=== PATIENT | female | born 1960 | race Caucasian/White ===

== ENCOUNTER → 2022-09-26 10:28 | Outpatient (BNVA) | payer MEDICAID, SELFPAY | PROVIDERS: Family Provider Internal Medicine; PCP Family Medicine; Visit Provider Specialist | DX: M87.051 Idiopathic aseptic necrosis of right femur (principal); M17.11 Unilateral primary osteoarthritis, right knee | CPT/HCPCS: 73560; 73565 ==

== ENCOUNTER 2022-10-07 09:21 | Outpatient (CLI) | payer BC, MEDICAID, SELFPAY | END 2022-10-07 09:22 | disposition home or self-care (01) | PROVIDERS: PCP Emergency Medicine; Visit Provider Specialist | DX: Z13.6 Encounter for screening for cardiovascular disorders (principal) | CPT/HCPCS: 93005 ==

== ENCOUNTER 2022-10-18 16:44 | Inpatient (IN) | payer BC, MEDICAID, SELFPAY ==
--- NOTE | 2022-10-07 13:12 | ECG_ITS ---
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 Measurements Intervals [place] Rate: 74 P: 77 CO: 129 QRS: 62 QRSD: 92 T: 77 QT: 303 QTc: 336 Interpretive Statements SINUS RHYTHM NONSPECIFIC T-WAVE ABNORMALITY Compared to ECG 02/21/2018 08:25:09 No significant changes Electronically Signed On 10-10-2022 18:34:40 GRINDER SET UP OPERATOR by Kris Vega M.D. [id number]
[2022-10-07 13:13] LABS: Basophils # 0.1 10^3/uL (0.0-0.1); Basophils % 0.5 %; Eosinophils # 0.2 10^3/uL (0.0-0.8); Eosinophils % 1.5 %; Hematocrit 41.6 % (37.0-47.0); Hemoglobin 12.4 g/dL (11.5-15.3); Lymphocytes # 1.3 10^3/uL (0.8-4.8); Lymphocytes % 10.5 %; Mean Corpuscular HGB Conc 29.8 g/dL (30.0-36.0); Mean Corpuscular Hemoglobin 28.1 pg (28.0-34.0); Mean Corpuscular Volume 94.1 fl (81-99); Mean Platelet Volume 9.7 fL (7.4-10.4); Monocytes # 0.7 10^3/uL (0.2-0.9); Monocytes % 5.7 %; Neutrophils # 10.15 10^3/uL (1.8-7.7); Neutrophils % 80.8 %; Nucleated Red Blood Cells % 0 %; Platelet Count 330 10^3/cmm (130-400); Red Blood Count 4.42 10^6/uL (4.1-5.3); Red Cell Distribution Width 14.3 % (12.1-15.1); White Blood Count 12.6 10^3/uL (4.0-10.0)
--- NOTE | 2022-10-07 13:20 | ANES.PREANE2 ---
Pre-Anesthetic Assessment Height/Weight: Height 1.7 m Weight 45.359 kg Preop Diagnosis: Osteoarthritis right knee with avascular necrosis Operation Date: 10/18/22 07:00 Proposed Procedures p RIGHT TOTAL KNEE ARTHROPLASTY WITH REVISION COMPONENTS 44347,M87.059,M17.11(Right) - Halie Menchaca MD Familial anesthetic complications: None Social Tobacco and No alcohol Exam alert, oriented x 3, clear to auscultation bilaterally and regular rate & rhythm Airway Mallampati: Class I Dentition: false Pulmonary Chronic Obstructive Pulmonary Disease (chronic broncitis) CV/HEM Peripheral Vascular Disease (Blue toe syndrome) Vtach s/p ablation (? RV outflow tract origin as etiology per EKG changes) - S/p ablation with no further issues Mild AI Cardiomyopathy 2018 echo (during her Vtach episodes) - EF 60%, mild MVR, MoD AVR and Mild Pulm HTN LBBB Cath from [facility] showed patient to have RCA dominant circulatoin and mild Diffuse CAD Chronic Renal Insufficiency (stage III) GI Gastroesophageal Reflux Disease Metabolic Thyroid Disease Musc/skel Scoliosis CREST syndrome w/ mild pulm HTN and raynaud's syndrome (toe amputation) Neuropsych None reported Anesthetic Plan ASA status: 4 Anesthesia: Regional (specify below) Other: Spinal + adductor Risk of > 500 ml blood loss (7ml/kg in children): No Other Pertinent Information Patient states her close family have been diagnosed with Strep. Today she states she isn't feeling well and sounds Cruddy. Her WBC is slightly elevated today. INstructed patient to see PCP before surgery, since the surgery will involve implants. Medications/Allergies Home Medications Medication Instructions Recorded Confirmed Last Taken Type albuterol sulfate 90 mcg/actuation 2 puff inhalation Q6H PRN 09/26/22 10/07/22 Unknown History aerosol inhaler Shortness Of Breath bupropion HCl 150 mg 24 hr tablet, 150 mg PO QAM 09/26/22 10/07/22 10/07/22 History extended release buspirone 5 mg tablet 5 mg PO TID 09/26/22 10/07/22 10/07/22 History cholecalciferol (vitamin D3) 125 125 mcg PO DAILY 09/26/22 10/07/22 10/07/22 History mcg (5,000 unit) capsule cilostazol 100 mg tablet 100 mg PO BID 11/06/1010/07/22 10/07/22 History citalopram 40 mg tablet 40 mg PO DAILY 09/26/22 10/07/22 10/07/22 History clopidogrel 75 mg tablet 75 mg PO DAILY 09/26/22 10/07/22 10/07/22 History ferrous sulfate 325 mg (65 mg 325 mg PO DAILY 09/26/22 10/07/22 10/07/22 History iron) tablet (Feosol) gabapentin 300 mg capsule 300 mg PO BID 09/26/22 10/07/22 10/06/22 History hydrocodone 10 mg-acetaminophen 1 tab PO Q4H PRN Pain 09/26/22 10/07/22 10/07/22 History 325 mg tablet hydroxychloroquine 200 mg tablet 200 mg PO DAILY 09/26/22 10/07/22 10/07/22 History lactobacillus combination no.9 4 4,000 mmu cells PO DAILY 09/26/22 10/07/22 Unknown History billion cell capsule (Adult 50 Plus Probiotic) levothyroxine 75 mcg tablet 75 mcg PO DAILY 09/26/22 10/07/22 10/07/22 History (Synthroid) midodrine 5 mg tablet 5 mg PO TID 09/26/22 10/07/22 10/07/22 History nitroglycerin 2 % transdermal 1 inch transdermal Q6H 09/26/22 10/07/22 Unknown History ointment (Nitro-Bid) omeprazole 40 mg capsule,delayed 40 mg PO BID 09/26/22 10/07/22 10/07/22 History release prednisone 5 mg tablet 5 mg PO DAILY 09/26/22 10/07/22 10/07/22 History Allergies Allergy/AdvReac Type Severity Reaction Status Date / Time No Known Allergies Allergy Unverified 09/26/22 10:46 [facility] Anesthesia Medical History (Updated 09/27/22 @ 11:26 by Halie Menchaca MD) Amputation of right great toe Anxiety and depression Aseptic necrosis medial femoral condyle Bilateral leg pain Blue toe syndrome Cardiomyopathy Chronic bronchitis COPD (chronic obstructive pulmonary disease) Coronary artery disease CREST syndrome Generalized arteriosclerosis Hypertension Hypothyroidism Mild aortic insufficiency Osteoporosis Raynauds syndrome Restless leg syndrome Stage 3b chronic kidney disease (CKD) Ventricular tachycardia Vitamin D deficiency Surgical History (Updated 09/27/22 @ 11:26 by Halie Menchaca MD) History of cardiac radiofrequency ablation (RFA) Social History Smoking and tobacco status: current every day smoker Second hand smoke exposure: Yes Smoking risk assessment/counseling performed?: No Alcohol intake: never Adopted: No Caregiver/support person: No Lives independently: No Household members: family Housing: House Number of children: 3 Number of grandchildren: 7 Highest education level completed: High School Graduate service: No Current occupational status: employed 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
[2022-10-07 13:24] LABS: Add Urine Microscopic? NO; Charge for UA Resulting for Rev
[2022-10-07 13:29] LABS: Alanine Aminotransferase 7 U/L (0-33); Albumin Level 3.9 g/dL (3.5-5.2); Alkaline Phosphatase 95 U/L (35-105); Anion Gap 15.4 (5-19); Aspartate Amino Transferase 11 U/L (0-32); Blood Urea Nitrogen 12 mg/dL (8-23); Calcium 9.6 mg/dL (8.5-10.5); Carbon Dioxide 22 mmol/L (22-29); Chloride 102 mmol/L (98-107); Globulin 2.6 g/dL (1.3-4.6); Glomerular Filtration Rate 41.8 mL/min (90-130); Glucose 74 mg/dL (65-115); Osmolality Calculated 278 mOsm/kg (285-295); Potassium 4.4 mmol/L (3.5-5.1); Sodium 135 mmol/L (136-145); Total Bilirubin 0.2 mg/dL (0.15-1.2); Total Protein 6.5 g/dL (6.6-8.7)
[2022-10-07 13:31] LABS: Bilirubin Urine Neg (Negative); Blood Urine Neg (Negative); Glucose Urine UA Norm (Normal); Ketones Urine Negative (Negative); Leukocyte Esterase Urine Negative (Negative); Nitrate Urine Negative (Negative); Protein Urine Neg (Negative); Specific Gravity, Urine 1.015 (1.005-1.030); Urine Appearance Clear (CLEAR); Urine Color Yellow (Yellow); Urobilinogen Urine Neg (Negative); pH Urine 6 (5-7)
[2022-10-18] VITALS (20 sets, daily range): BP systolic 88–119; BP diastolic 57–72; PULSE 95–104; RESP 12–20; TEMP 36.3–37.1; O2SAT 90–96
[2022-10-18] MEDS: acetaminophen 1,000 MG/100 ML PIGGYBACK 400 MG IV ×2 (10:45→17:30)
--- NOTE | 2022-10-18 11:00 | P.ANESUD_ITS ---
Pre-Anesthetic Update Pre-Anesthetic Assessment: Date of Surgery/Procedure: 10/18/22 Preop Kathie gnosis: Osteoarthritis right knee with avascular necrosis Proposed Procedure: Operation Date: 10/18/22 11:15 Proposed Procedures p RIGHT TOTAL KNEE ARTHROPLASTY WITH REVISION COMPONENTS 89733,M87.059,M17.11(Right) - Halie Menchaca MD Any changes to Pre-Anesthetic Assessment?: No Last Intake: Intake Last Liquid Date 10/17/22 Last Liquid Time 23:45 Last Solid Date 10/17/22 Last Solid Time 23:30 Vitals: Temperature 98.7 F 10/18/22 10:20 Temperature Source Temporal Artery S can 10/18/22 10:20 Pulse Rate 104 H 10/18/22 10:20 Respiratory Rate 18 10/18/22 10:20 Blood Pressure 88/57 10/18/22 10:20 Blood Pressure Yamilet n 67 10/18/22 10:20 Pulse Oximetry 96 10/18/22 10:20 Oxygen Delivery Me thod 10/18/22 10:23 Exam: Pre-Anes Outpt Exam: alert, oriented x 3, clear to auscultation bilate rally and regular rate & rhythm Cardiac Studies: No Data to Display
--- NOTE | 2022-10-18 11:00 | ANES.PROC ---
Anesthesia Procedures Procedure/Date: 10/18/22 Nerve Block ^: Nerve Block 1: Main Anesthesia: spinal anesthesia block Time Out Performed: Yes Consent: requested by attending/covering physician, from patient, risks and benefits reviewed and patient agrees to proceed Nerve block location: adductor canal (R) Anesthesia monitors applied: pulse oximetry, EKG, BP cuff and oxygen Nerve block position: supine Anesthetic Used: ropivicaine 0.5% (30 ml) and with decadron (4 mg) Ultrasound used to: recognize landmarks and visualize and ID femerol nerve Nerve Stimulator Used?: No Interscalene/Femoral BLK: 4 stimuplex 21 g needle used for position and inplane approach, visualize local anesthetic spread and no vascular puncture identified Injection: neg aspiration of heme Patient Tolerated Procedure: well Complications: none
[2022-10-18] MEDS: sodium chloride 0.9% 1,000 ML 30 ML IV (11:02)
--- NOTE | 2022-10-18 11:45 | P.HPUD_ITS ---
Surgery/Procedure H&P Update DATE OF PROCEDURE: October 18, 2022 DATE H&P PERFORMED: 09/26/22 H&P UPDATE INFORMATION: I have reviewed H&P completed within last 30 days, I have examined patient prior to procedure, No changes to prior documentation and H&P is in [facility] EMR on date indicated PREOP DIAGNOSIS: Osteoarthritis right knee with avascular necrosis medial femoral condyle PLANNED PROCEDURE: Operation Date: 10/18/22 11:15 Proposed Procedures p RIGHT TOTAL KNEE ARTHROPLASTY WITH REVISION COMPONENTS 57818,M87.059,M17.11(Right) - Halie Menchaca MD Related Problem List Diagnoses (1) Arthritis of right knee: (2) Aseptic necrosis medial femoral condyle:
[2022-10-18] MEDS: ceFAZolin 2,000 MG in sodium chloride 0.9% (plus) 50 ML 100 MG IV ×2 (12:15→20:29)
[2022-10-18] MEDS: tranexamic acid 1,000 mg/10mL SDV 500 MG IV ×2 (12:50→14:36)
[2022-10-18] MEDS: ceFAZolin 1,000 mg SDV 2000 MG IRRIGATION (13:29)
[2022-10-18] MEDS: vancomycin 1,000 MG SDV 1000 MG XX (13:30)
--- NOTE | 2022-10-18 15:01 | PM.OP ---
Operative Report Date of procedure: October 18, 2022 Pre-op diagnosis: Osteoarthritis right knee with avascular necrosis medial femoral condyle with flexion contracture Post-op diagnosis: Osteoarthritis right knee with avascular necrosis medial femoral condyle with flexion contracture Procedure done: Right total knee arthroplasty Implants: The Gabby cemented total knee system with a size 3 triathlon posterior stabilized femur right, a triathlon universal tibial component size 4, a triathlon X3 posterior stabilized tibial bearing insert size 4 X 11 mm and a triathlon X3 asymmetric patella size 29 x 9 mm Specimens removed/disposition: Avascular bone sent to pathology Surgeon: Halie Menchaca [employer] Launch [employer] Technician[facility] Anesthesia: MAC (MAC with spinal, ASA 4) Estimated blood loss (mL): 25 Tourniquet time (min): 111 (At 250 mmHg) IV fluids (mL): 1,500 Urine output (mL): 400 Complications: None Findings: Complete dissociation of cartilage and avascular bone distally on the medial femoral condyle. Condition: stable Disposition: PACU (Then to floor for postoperative rehabilitation and pain management) Brief History: 62-year-old woman presented to my office with complaints of severe right knee pain. After evaluation of x-rays and MRI, the patient was diagnosed with severe avascular change in the medial femoral condyle of the right femur. After discussion with the patient, we elected to proceed with surgical intervention. Risks and complications were discussed. Plans were made to have full revision components with augments and stems should it be needed. The patient understood this as well. Consents were signed and the patient was scheduled for surgery. Procedure: The patient was brought to the operating theater, and after undergoing adequate spinal anesthesia, ASA 4, the right lower extremity was prepped and draped in usual fashion following placement of a tourniquet high on the leg. The leg was then draped free with the prepping accomplished with DuraPrep. Following prepping and draping, the leg was exsanguinated, and the tourniquet was elevated to 250 mmHg for total tourniquet time of 111 minutes. Prior to elevation of the tourniquet the following exposure of the site of surgery, a surgical pause was performed. At the time of the surgical pause we confirmed the site and side of surgery. Additionally, we confirmed the appropriate and timely administration of preoperative antibiotics, Ancef 2 g. The availability of equipment was confirmed, and the patient's identity was verbalized as well. Following the surgical pause, an incision was made centering over the patella continuing proximally and distally as necessary to allow access to the knee joint. Dissection continued through skin and soft tissues using a scalpel. Hemostasis was obtained using electrocautery. The midline skin incision was followed by a median parapatellar arthrotomy. The leg was extended and the patella was everted. Following this the leg was returned to flexed position. The distal femur was exposed. There was noted to be significant obvious avascular necrosis over the medial femoral condyle of the distal femur. There was cartilage with a layer of bone suspended essentially in space at the distal aspect of the medial femoral condyle. This was easily pulled sideways for evaluation of the underlying bone which was noted to be quite sclerotic. For further evaluation of this bone, dental pick was used to make sure that there were no large cysts that were hidden behind the bone. We elected to proceed with preparation for primary total knee arthroplasty at this time with evaluation of the need for augments to be accomplished as the case proceeded. A drill hole was made in the intercondylar notch for placement of the distal femoral jig. The distal femoral jig was set at 5? of valgus. The distal femoral cutting block was then placed in appropriate position, and an evangelist wing was used to confirm an appropriate amount of distal femur would be resected. Due to the avascular necrotic changes of the distal medial femoral condyle, and a slight flexion contracture, we resected the distal femur at 10 degrees. The distal femoral resection was accomplished. After the distal femoral resection had been accomplished the femur was measured and it measured a size 3. Anterior posterior dimension was a size 3 as well. Once the distal femoral resection was accomplished, we further evaluated the femur, and at this point, made the decision to proceed as though a primary knee implant would be appropriate. A size 3 femoral cutting block was placed in position and we were then able to accomplish the anterior, posterior and chamfer cuts. This jig was then removed and the notch guide was placed in position. With the notch guide in appropriate position the notch was excised including resection of the anterior and posterior cruciate ligaments. This notch was to allow for the posterior stabilized femoral component. After resection of the notch as well as performance of the anterior posterior tear for cuts, it was felt that adequate bone was available to proceed with a primary total knee arthroplasty, cemented, but without revision components. At this point, the femur was prepared and attention was directed to the proximal tibia. The posterior knee retractor was placed along with medial and lateral retractors. Further resection of the menisci were accomplished as we had better visualization. A complete meniscectomy was performed both medially and laterally with care being taken to protect the popliteus. Retractors were then placed so that the proximal tibia was well visualized. A drill hole was then made in the tibia for placement of the intramedullary guide. This guide was placed so that approximately to mm of bone to be resected from the deficient medial tibial plateau. The intramedullary guide was utilized supplemented with an extra medullary guide to assure appropriate alignment for the proximal tibial resection. The proximal tibial jig was then evaluated, pinned in position, and the proximal tibial resection was accomplished without difficulty. The jig was removed and the proximal tibia was measured. It measured a size 4. We then performed a trial reduction with an 11 mm insert into the size 4 tray. The femoral component was placed in position and the knee was placed through range of motion. There was good stability. There was full extension without lift off and the rotation of the tibia was marked. Patella was noted to track nicely. Attention was then directed to the patella. The patella was measured with a caliper. We resected about 7 mm of the patella which left remaining approximately 14 mm. Measurements of the patella then indicated that a size asymmetric 29 mm x 9 mm was the appropriate patellar size. We then placed the jig to drill for the 3 pegs of the patella, and these drill holes were made without incident. A trial patella was then placed and the knee was placed through range of motion. The patella was noted to track nicely without evidence of subluxation. All trial components were subsequently removed. The tibial tray was then pinned into position and we drilled and broached the tibia for the stem of the tibial component. This was accomplished without difficulty. Care was taken to assure appropriate rotation on the tibia as well as appropriate position on the proximal tibia. The tibial tray was completely seated on the proximal tibia. Following broaching, the tibial guide was removed and all surfaces were copiously irrigated in preparation for cementing, this included a pin on power in the sclerotic areas of the medial tibial plateau and patella. The surfaces were then dried and a bone plug was placed into the distal femur. Cementing was accomplished with Gabby cement. This gave us excellent working time. Cement was placed initially under the proximal tibia and the tibia was impacted into position. Similarly the femur was impacted into position after cement was laid onto the distal femur pushing it into the interstitial bone. All components were impacted into position and excess cement was removed from around both components. The tibial tray was placed during the cementing process so that we could place the knee in extended position while the cement was allowed to fully cure. The patella was also cemented at this point in time and held with a patellar clamp. Once again excess cement was cleared from around the patellar component as well. The knee was held in the extended position until cement was allowed to fully cure. During that time we did irrigate the knee with 20 mL of Betadine and 500 mL of normal saline and will allow this to remain in the knee for 3-4 minutes. Once the cement had fully cured, all surfaces were reevaluated for further extruded cement and where this was found it was excised. Once the cement had fully cured and excess cement was cleared, the knee was then copiously irrigated and suctioned dry. Attention was then directed to closure. Closure was accomplished with 0 Vicryl in the fascial tissues, 2-0 Monocryl was used in the subcutaneous tissues, and the skin was closed with skin lenard. A sterile dressing was then placed consisting of Dermabond pernio, OpSite, sterile soft roll, and an Lamine wrap. The patient was returned the Recovery Room in a satisfactory condition. X-rays were obtained there. The patient will be discharged to the floor for postoperative rehabilitation and pain management. There were no specimens and no complications.
--- NOTE | 2022-10-18 15:31 | XRR_ITS ---
PROCEDURE INFORMATION: Exam: XR Right Knee Exam date and time: 10/18/2022 3:33 PM Age: 62 years old Clinical indication: Device placement; Joint replacement hardware; Prior surgery; Surgery date: Post-operative (0-2 days); Surgery type: Right total knee TECHNIQUE: Imaging protocol: Radiologic exam of the Right knee. Views: 3 views. COMPARISON: CR XR knees AP WB w RT lmt ORTH 09/26/2022 10:29 AM FINDINGS: Bones/joints: Knee arthroplasty changes in place with postsurgical soft tissue changes. Soft tissues: See Bones/joints finding. Vasculature: Scattered vascular calcifications. XR/XR knee RT 3V* [id number] IMPRESSION: 1. Knee arthroplasty changes in place with postsurgical soft tissue changes. 2. Scattered vascular calcifications.
--- NOTE | 2022-10-18 16:24 | ANE.PACU2 ---
Inpatient post-anesthesia follow up: Airway intact: Yes Vital signs: Temperature 97.4 F Pulse Rate 97 Respiratory Rate 14 Blood Pressure 113/71 Pulse Oximetry 93 Oxygen Delivery Me thod Room Air Oxygen Flow Rate Fraction of Inspir ed Oxygen Hydration adequate: Yes Nausea and vomiting: No Pain level: 1 Mental status: Baseline
[2022-10-18] MEDS: mupirocin oint 22 gm 1 APPLIC NASAL (17:30)
[2022-10-18] MEDS: calcium carbonate 500 mg Chew Tablet 1000 MG PO (17:30)
[2022-10-18] MEDS: oxyCODONE 5 mg IR Tab/Cap 10 MG PO (17:31)
[2022-10-18] MEDS: pantoprazole DR 40 mg Tablet PO (17:32)
[2022-10-18] MEDS: cilostazol 100 mg Tablet PO (17:34)
[2022-10-18] MEDS: chlorhexidine gluconate 0.12% Btl 473 mL 30 ML MUCOUS MEM ×2 (17:34→20:31)
[2022-10-18] MEDS: iron polysaccharide complex 150 mg Capsule PO (17:34)
[2022-10-18] MEDS: gabapentin 300 mg Capsule PO (17:34)
[2022-10-18] MEDS: sennosides-docusate Tablet 2 TAB PO (17:34)
[2022-10-18] MEDS: CELEcoxib 200 mg Capsule PO (17:34)
--- NOTE | 2022-10-18 18:43 | PC.NURSE ---
Patient arrived to unit via bed from PACU, minimal c/o pain, Right knee dressing clean, dry and intact, AAOx4, VSS, patients pain increased once on the floor. Family at bedside, patient has thomas of $41 in wallet at bedside refusing to lock up in pyxis and patient was educated by this nurse of the risk of keeping bedside. Notified case management about determining inpatient needs versus outpatient but patient has not been seen by PT to determine any difference. They will follow up tomorrow. Room clean and clutter free with call light in reach. All questions and concerns addressed at this time.
[2022-10-18] MEDS: BuSPIRONE 10 mg Tablet 5 MG PO (20:30)
[2022-10-18] MEDS: midodrine 5 mg TABLET PO (20:30)
[2022-10-18] MEDS: oxyCODONE 5 mg IR Tab/Cap PO (21:56)
[2022-10-19] VITALS (9 sets, daily range): BP systolic 93–115; BP diastolic 58–67; PULSE 96–105; RESP 16–18; TEMP 36.4–36.5; O2SAT 94–96
[2022-10-19] MEDS: acetaminophen 1,000 MG/100 ML PIGGYBACK 400 MG IV ×2 (00:03→08:19)
[2022-10-19 02:02] LABS: Basophils % 0.2 %; Hematocrit 32.6 % (37.0-47.0); Lymphocytes % 6.8 %; Mean Corpuscular HGB Conc 30.7 g/dL (30.0-36.0); Mean Corpuscular Hemoglobin 28.5 pg (28.0-34.0); Mean Corpuscular Volume 92.9 fl (81-99); Mean Platelet Volume 9.8 fL (7.4-10.4); Monocytes # 0.9 10^3/uL (0.2-0.9); Monocytes % 6.2 %; Neutrophils # 12.54 10^3/uL (1.8-7.7); Neutrophils % 85.6 %; Nucleated Red Blood Cells % 0 %; Platelet Count 328 10^3/cmm (130-400); Red Blood Count 3.51 10^6/uL (4.1-5.3); Red Cell Distribution Width 14.1 % (12.1-15.1); White Blood Count 14.6 10^3/uL (4.0-10.0)
[2022-10-19 02:36] LABS: Anion Gap 15.1 (5-19); Blood Urea Nitrogen 18 mg/dL (8-23); Calcium 9.2 mg/dL (8.5-10.5); Carbon Dioxide 16 mmol/L (22-29); Chloride 109 mmol/L (98-107); Glomerular Filtration Rate 38.4 mL/min (90-130); Glucose 88 mg/dL (65-115); Osmolality Calculated 283 mOsm/kg (285-295); Potassium 4.1 mmol/L (3.5-5.1); Sodium 136 mmol/L (136-145)
[2022-10-19] MEDS: oxyCODONE 5 mg IR Tab/Cap PO ×4 (03:55→13:58)
[2022-10-19] MEDS: CELEcoxib 200 mg Capsule PO (03:55)
[2022-10-19] MEDS: ceFAZolin 2,000 MG in sodium chloride 0.9% (plus) 50 ML 100 MG IV ×2 (03:56→11:54)
[2022-10-19] MEDS: buPROPion XL (24 HR) 150 mg Tablet PO (06:14)
[2022-10-19] MEDS: aspirin 325 mg EC Tablet PO (08:05)
[2022-10-19] MEDS: BuSPIRONE 10 mg Tablet 5 MG PO (08:05)
[2022-10-19] MEDS: iron polysaccharide complex 150 mg Capsule PO (08:05)
[2022-10-19] MEDS: calcium carbonate 500 mg Chew Tablet 1000 MG PO (08:05)
[2022-10-19] MEDS: cilostazol 100 mg Tablet PO (08:19)
[2022-10-19] MEDS: cholecalciferol (vitamin D3) 1,000 unit Tablet 1000 UNIT PO (08:19)
[2022-10-19] MEDS: multivitamin therapeutic Tablet 1 TAB PO (08:19)
[2022-10-19] MEDS: citalopram 20 mg Tablet 40 MG PO (08:20)
[2022-10-19] MEDS: pantoprazole DR 40 mg Tablet PO (08:20)
[2022-10-19] MEDS: gabapentin 300 mg Capsule PO (08:20)
[2022-10-19] MEDS: levothyroxine 75 mcg Tablet PO (08:21)
[2022-10-19] MEDS: predniSONE 5 mg Tablet PO (08:21)
[2022-10-19] MEDS: hydroxychloroquine 200 mg Tablet PO (08:21)
[2022-10-19] MEDS: midodrine 5 mg TABLET PO (08:21)
[2022-10-19] MEDS: ferrous sulfate EC 325 mg Tablet PO (08:22)
[2022-10-19] MEDS: chlorhexidine gluconate 0.12% Btl 473 mL 30 ML MUCOUS MEM ×2 (08:22→11:54)
[2022-10-19] MEDS: sennosides-docusate Tablet 2 TAB PO (08:22)
[2022-10-19] MEDS: clopidogrel 75 mg Tablet PO (08:22)
[2022-10-19] MEDS: mupirocin oint 22 gm 1 APPLIC NASAL (09:48)
--- NOTE | 2022-10-19 13:31 | P.DS_ITS ---
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 Procedure done: Right total knee arthroplasty Implants: [employer] cemented total knee system with a size 3 triathlon posterior stabilized femur right, a triathlon universal tibial component size 4, a triathlon X3 posterior stabilized tibial bearing insert size 4 X 11 mm and a triathlon X3 asymmetric patella size 29 x 9 mm (2) Arthritis of right knee: Status: Acute (3) Aseptic necrosis medial femoral condyle: Status: Acute Reason for Visit Reason for Visit: Avascular necrosis with osteoarthritis right knee Brief History: 62-year-old woman presented to my office with complaints of severe right knee pain.? After evaluation of x-rays and MRI, the patient was diagnosed with severe avascular change in the medial femoral condyle of the right femur.? After discussion with the patient, we elected to proceed with surgical intervention.? Risks and complications were discussed.? Plans were made to have full revision components with augments and stems should it be needed.? The patient understood this as well.? Consents were signed and the patient was scheduled for surgery. Hospital Course Hospital Course This 62-year-old woman underwent right total knee arthroplasty for avascular necrosis, severe, of the medial femoral condyle of the right knee. The surgical procedure was without complication, and the patient did well. Postoperatively, she did have some pain management issues, but this was controlled with routine medication with some adjustments. On the first postoperative day, she underwent physical therapy and did well. Dressings were removed, the leg was benign. There was no evidence of DVT or infection. She was felt to be independent and safe for discharge to home. The patient therefore was given appropriate prescriptions, she will be on aspirin for DVT prophylaxis, and she was discharged home uneventfully on postop day 1. She will follow-up in the office as scheduled. Physical Exam Const: COMMON NORMALS: no acute distress, average body habitus, patient oriented x3 and alert GENERAL APPEARANCE: cooperative and comfortable ORIENTATION/CONSCIOUSNESS: Yes awake HENMT: COMMON NORMALS: normocephalic and atraumatic HEAD & SCALP: normocephalic and atraumatic Eye: GENERAL EYE: appearance normal, both eyes and all related structures Chest: COMMONS NORMALS: normal inspection of the chest Resp: COMMON NORMALS: normal respiratory effort EFFORT & INSPECTION: Yes able to speak in complete sentences and Yes symmetric chest movement Extremity: NARRATIVE EXTREMITY EXAM: Dressings were removed from the right knee down to the OpSite which have been placed over [place]. There was no evidence of DVT. RIGHT LOWER EXTREMITY: Yes knee joint Right knee: Yes inspection (No significant swelling.), Yes palpation (Minimal tenderness.), Yes ROM (Lacking extension with flexion to 100 degrees.) and Yes neurovascular exam (Intact distally, no evidence of DVT.) Neuro: COMMON NORMALS: patient oriented x3 SENSORIUM/ORIENTATION: Yes alert Psych: COMMON NORMALS: mental status grossly normal APPEARANCE: Yes grossly normal ATTITUDE: Yes calm and Yes engaged ATTENTION/CONCENTRATION: Yes attention grossly intact Skin: COMMON NORMALS: no rashes or lesions noted GENERAL SKIN EXAM: no rashes or lesions noted Urinary Catheter Management: Fagan: Cath Placed During This Visit: yes Reason for Continuing Indwelling Catheter: Required Immobilization for Trauma or Surgery or Anesthesia Urinary Catheter Date of Insertion: 10/18/22 Urinary Catheter Time of Insertion: 12:35 Discharge Data Studies Completed and Pending Completed Studies During Hospitalization Category Date Time Status XR knee RT 3V* [id number] Urgent Exams 10/18/22 15:31 Completed Pending at discharge Category Date Time Status Pathology: Surgical [PTH] Routine Pth 10/18/22 15:23 Received Radiology Impressions Knee X-Ray 10/18/22 15:31 IMPRESSION: 1. Knee arthroplasty changes in place with postsurgical soft tissue changes. 2. Scattered vascular calcifications. Laboratory Results WBC 14.6 10^3/uL (4.0-10.0) H 10/19/22 00:57 RBC 3.51 10^6/uL (4.1-5.3) L 10/19/22 00:57 Hgb 10.0 g/dL (11.5-15.3) L 10/19/22 00:57 Hct 32.6 % (37.0-47.0) L 10/19/22 00:57 MCV 92.9 fl (81-99) 10/19/22 00:57 MCH 28.5 pg (28.0-34.0) 10/19/22 00:57 MCHC 30.7 g/dL (30.0-36.0) 10/19/22 00:57 RDW 14.1 % (12.1-15.1) 10/19/22 00:57 Plt Count 328 10^3/cmm (130-400) 10/19/22 00:57 MPV 9.8 fL (7.4-10.4) 10/19/22 00:57 Neut % (Auto) 85.6 % 10/19/22 00:57 Lymph % (Auto) 6.8 % 10/19/22 00:57 [place] % (Auto) 6.2 % 10/19/22 00:57 Eos % (Auto) 0.0 % 10/19/22 00:57 Baso % (Auto) 0.2 % 10/19/22 00:57 Neut # (Auto) 12.54 10^3/uL (1.8-7.7) H 10/19/22 00:57 Lymph # (Auto) 1.0 10^3/uL (0.8-4.8) 10/19/22 00:57 [place] # (Auto) 0.9 10^3/uL (0.2-0.9) 10/19/22 00:57 Eos # (Auto) 0.0 10^3/uL (0.0-0.8) 10/19/22 00:57 Baso # (Auto) 0.0 10^3/uL (0.0-0.1) 10/19/22 00:57 Nucleated RBC % (auto) 0 % 10/19/22 00:57 Nucleated RBCs # 0.0 /100WBC 10/19/22 00:57 Sodium 136 mmol/L (136-145) 10/19/22 00:57 Potassium 4.1 mmol/L (3.5-5.1) 10/19/22 00:57 Chloride 109 mmol/L (98-107) H 10/19/22 00:57 Carbon Dioxide 16 mmol/L (22-29) L 10/19/22 00:57 Anion Gap 15.1 (5-19) 10/19/22 00:57 BUN 18 mg/dL (8-23) 10/19/22 00:57 Creatinine 1.4 mg/dL (0.5-0.9) H 10/19/22 00:57 GFR Calculation 38.4 mL/min (90-130) L 10/19/22 00:57 Glucose 88 mg/dL (65-115) 10/19/22 00:57 Calculated Osmolality 283 mOsm/kg (285-295) L 10/19/22 00:57 Calcium 9.2 mg/dL (8.5-10.5) 10/19/22 00:57 Total Bilirubin 0.2 mg/dL (0.15-1.2) 10/07/22 12:58 AST 11 U/L (0-32) 10/07/22 12:58 ALT 7 U/L (0-33) 10/07/22 12:58 Alkaline Phosphatase 95 U/L (35-105) 10/07/22 12:58 Total Protein 6.5 g/dL (6.6-8.7) L 10/07/22 12:58 Albumin 3.9 g/dL (3.5-5.2) 10/07/22 12:58 Globulin 2.6 g/dL (1.3-4.6) 10/07/22 12:58 Urine Color Yellow (Yellow) 10/07/22 12:58 Urine Appearance Clear (CLEAR) 10/07/22 12:58 Urine pH 6 (5-7) 10/07/22 12:58 Ur Specific [place] 1.015 (1.005-1.030) 10/07/22 12:58 Urine Protein Neg (Negative) 10/07/22 12:58 Urine Glucose (UA) Norm (Normal) 10/07/22 12:58 Urine Ketones Negative (Negative) 10/07/22 12:58 Urine Blood Neg (Negative) 10/07/22 12:58 Urine Nitrate Negative (Negative) 10/07/22 12:58 Urine Bilirubin Neg (Negative) 10/07/22 12:58 Urine Urobilinogen Neg mg/dL (Negative) 10/07/22 12:58 Ur Leukocyte Esterase Negative (Negative) 10/07/22 12:58 Vitals Last Vital Signs Temp 97.6 F 10/19/22 11:11 Pulse 102 H 10/19/22 11:11 Resp 16 10/19/22 11:11 BP 115/64 10/19/22 11:11 Pulse Ox 95 10/19/22 11:11 O2 Del Method 10/19/22 11:11 Discharge Plan Discharge Patient Disposition: Home Health Service Condition: Stable Prescriptions: New acetaminophen 500 mg Tablet 1,000 mg PO Q8H 15 Days Qty: 90 0RF Rx Instructions: Decrease your Tylenol dosage by 1 tablet if you take hydrocodone rather than the oxycodone. aspirin 325 mg Tablet,Delayed Release (Dr/Ec) 325 mg PO DAILY 30 Days Qty: 30 0RF celecoxib 200 mg Capsule 200 mg PO 1XD 30 Days Qty: 30 0RF oxycodone 5 mg Tablet 5 mg PO Q2H PRN (Reason: Severe Pain) 7 Days Qty: 30 0RF Continued hydrocodone-acetaminophen 10-325 mg tablet 1 tab PO Q4H PRN (Reason: Pain) albuterol sulfate 90 mcg/actuation HFA aerosol inhaler 2 puff inhalation Q6H PRN (Reason: Shortness Of Breath) bupropion HCl 150 mg tablet extended release 24 hr 150 mg PO QAM buspirone 5 mg tablet 5 mg PO TID cilostazol 100 mg tablet 100 mg PO BID citalopram 40 mg tablet 40 mg PO DAILY clopidogrel 75 mg tablet 75 mg PO DAILY Adult 50 Plus Probiotic 4 billion cell capsule 4,000 mmu cells PO DAILY Rx Instructions: administer with a meal ferrous sulfate [Feosol] 325 mg (65 mg iron) tablet 325 mg PO DAILY gabapentin 300 mg capsule 300 mg PO BID hydroxychloroquine 200 mg tablet 200 mg PO DAILY Rx Instructions: take 1.5 tab daily midodrine 5 mg tablet 5 mg PO TID Rx Instructions: do not give last dose of day after 6PM or within 4 hrs of bedtime Nitro-Bid 2 % ointment 1 inch transdermal Q6H Rx Instructions: allow nitrate-free interval of approx. 10-12 hrs per 24-hour period omeprazole 40 mg capsule,delayed release(DR/EC) 40 mg PO BID prednisone 5 mg tablet 5 mg PO DAILY levothyroxine [Synthroid] 75 mcg tablet 75 mcg PO DAILY cholecalciferol (vitamin D3) 125 mcg (5,000 unit) capsule 125 mcg PO DAILY Discharge Orders: Discharge Order (Routine); Ordered 10/19/22 Ordered By: Halie Menchaca Other Ambulatory Orders: DME: Walker (Order) Location: None Selected Ordered By: Halie Menchaca Referrals: [facility] ([facility]) [Outside] Halie Menchaca MD [Physician] - 10/31/22 9:45 am Discharge Diet: Advance as tolerated and Usual diet Discharge Activity: Increase activity as tolerated, Limit activity as instructed, Use walker/crutches as instructed and As per PT/OT instructions Patient Instructions: Acetaminophen (By mouth), Aspirin (By mouth), Oxycodone, Rapid Release (By mouth), Celecoxib (By mouth), Knee Replacement (DC), Joint Replacement Stoplight, Opioid Safety Activity Restrictions/Additional Instructions: Ice and elevation to right lower extremity. You may weight-bear as tolerated. Maintain dressing until it comes off on its own. Gait training, ambulation, and strengthening per physical therapy. Discharge Attestations Time Spent in Discharge Care*: greater than 30 min Quality Metrics Clinical Quality Measures [ No reported AMI, CVA or VTE this stay] Coding Level of Care Code Acute Chg FW DC note Diagnoses Status post total right knee replacement using cement Z96.651 Arthritis of right knee M17.11 Aseptic necrosis medial femoral condyle M87.059
== END 2022-10-19 14:51 | disposition home health service (06) | DRG 470 ==
LOC: MEDSURG 10-19 12:15
PROVIDERS: Admitting Provider Specialist; PCP Emergency Medicine; Visit Provider Specialist
PROC: 0SRC0J9 Replacement of Right Knee Joint with Synthetic Substitute, Cemented, Open Approach (ICD-10-PCS; CPT 27447; 2022-10-18 10:55)
DX: M17.11 Unilateral primary osteoarthritis, right knee (principal); M87.051 Idiopathic aseptic necrosis of right femur; I42.9 Cardiomyopathy, unspecified; F41.8 Other specified anxiety disorders; Z79.891 Long term (current) use of opiate analgesic; Z79.51 Long term (current) use of inhaled steroids; Z79.02 Long term (current) use of antithrombotics/antiplatelets; Z79.52 Long term (current) use of systemic steroids; J44.9 Chronic obstructive pulmonary disease, unspecified; F17.200 Nicotine dependence, unspecified, uncomplicated; E55.9 Vitamin D deficiency, unspecified; I12.9 Hypertensive chronic kidney disease with stage 1 through stage 4 chronic kidney disease, or unspecified chronic kidney disease; N18.32 Chronic kidney disease, stage 3b; E03.9 Hypothyroidism, unspecified; M81.0 Age-related osteoporosis without current pathological fracture; G25.81 Restless legs syndrome
CPT/HCPCS: 36415; 51702; 73562; 80048; 80053; 81003; 85025; 88304; 88311; 97110; 97116; 97161; 97165; 97530; C1776; C9290; J0131; J0690; J1100; J2704; J2795; J3370; J3490; J3535; J7030; J7512

== ENCOUNTER → 2022-10-31 10:16 | Outpatient (BNVA) | payer BC, MEDICAID, SELFPAY | PROVIDERS: PCP Emergency Medicine; Visit Provider Specialist | DX: Z96.651 Presence of right artificial knee joint (principal); M87.051 Idiopathic aseptic necrosis of right femur | CPT/HCPCS: 73560; 73565 ==

== ENCOUNTER → 2023-01-11 14:45 | Outpatient (BNVA) | payer BC, MEDICAID, SELFPAY | PROVIDERS: PCP Emergency Medicine; Visit Provider Nurse Practitioner Family | DX: Z96.651 Presence of right artificial knee joint (principal) | CPT/HCPCS: 73560; 73565 ==